=== PATIENT | male | born 1940 | race African-American/Black ===

== ENCOUNTER 2021-12-01 02:50 | Emergency (ER) | payer OTHER, MEDICARE ==
[~2021-12-01 02:50] MED LIST: HYDROCODON-ACE1 EAC4 PO; MEDROL 4MG DOSEP4 MG PO
[2021-12-01 03:21] LABS: BASOPHIL 1.1 % (0-2); EOSINOPHIL 0.9 % (0-7); HCT 47.2 % (42.0-52.0); HGB 15.7 g/dl (13.2-18.0); MCH 28.4 pg (25.0-31.0); MCHC 33.3 g/dL (32.0-36.0); MCV 85.4 fL (78.0-100.0); MONOCYTE 17.6 % (0-12); MPV 9.9 fL (6.0-9.5); NRBC 0; PLT 182 K/uL (150-400); RBC 5.53 M/uL (4.70-6.00); RDW 14.6 % (11.5-14.0); WBC 4.5 K/uL (4.0-10.5)
[2021-12-01 03:50] LABS: BUN/CREAT RATIO (CALC) 11.9 RATIO; CREATININE 1.09 mg/dL (0.67-1.17); POTASSIUM 3.9 mmol/L (3.5-5.1)
[2021-12-01 05:33] LABS: BILIRUBIN NEGATIVE (NEGATIVE); BLOOD 1+ Ery/uL (NEGATIVE); CLARITY CLEAR (CLEAR); COLOR YELLOW (YELLOW); GLUCOSE (U) NORMAL (NORMAL); LEUKOCYTES NEGATIVE Leu/uL (NEGATIVE); NITRITE NEGATIVE (NEGATIVE); PROTEIN NEGATIVE (NEGATIVE); SPECIFIC GRAVITY 1.025 (1.001-1.030); UROBILINOGEN 0.2 mg/dL (0.2-1.0)
[2021-12-01 05:43] LABS: MUCOUS LARGE; URINARY RBC RARE
[2021-12-01 10:32] LABS: INR 1.06 (0.9-1.2); PROTHROMBIN TIME 13.2 SECONDS (11.8-13.4); PTT 35.2 SECONDS (24.4-34.7)
== END 2021-12-01 16:35 | disposition other institution (70) ==
LOC: FER 02:50
PROVIDERS: Emergency Medicine; Emergency Medicine Emergency Medical Services
DX: I77.1 Stricture of artery (principal); I10 Essential (primary) hypertension; F17.200 Nicotine dependence, unspecified, uncomplicated
CPT/HCPCS: 36415; 71045; 75635; 80048; 81001; 83605; 84145; 84484; 85025; 85610; 85730; 93005; J1170; J1644; J2405